=== PATIENT | male | born 1955 | race Caucasian/White ===

== ENCOUNTER → 2018-09-23 17:28 | Outpatient (CLI) | payer MEDICARE, OTHER, SELFPAY ==
--- NOTE | 2018-09-23 17:32 | DI.RAD.S_ITS ---
PROCEDURE: XR FOOT LT MIN 3V INDICATIONS: ball of foot pain TECHNIQUE: 3 views of the foot were acquired. COMPARISON: None. FINDINGS: Bones: No fractures or dislocations. There is moderate to severe degeneration of the 1st interphalangeal joint as well as moderate degeneration of the 2nd and 3rd distal interphalangeal and. There is mild degeneration at the 1st metatarsophalangeal joint and the 4th distal interphalangeal joint. There is fusion of the 5th distal interphalangeal joint. There is a bipartite lateral sesamoid. No suspicious bony lesions. Soft tissues: No suspicious soft tissue calcifications. There is mild soft tissue swelling in the plantar aspect of the forefoot. IMPRESSION: 1. Osteoarthritic changes of the forefoot most prominent at the 1st interphalangeal joint. 2. Bipartite lateral sesamoid. If there is clinical suspicion for sesamoiditis, further evaluation may be obtained with MRI. Dictated by: Stu Camejo M.D. on 09/23/2018 at 18:13 Approved by: Stu Camejo M.D. on 09/23/2018 at 18:16
--- NOTE | 2018-09-23 17:32 | DI.RAD.S_ITS ---
PROCEDURE: XR ANKLE LT MIN 3V INDICATIONS: ball of foot pain TECHNIQUE: 3 views of the ankle were acquired. COMPARISON: None. FINDINGS: Bones: No fractures or dislocations. Ankle mortise is normally aligned. No suspicious bony lesions. Soft tissues: There is a small tibiotalar joint effusion. Achilles tendon appears normal. IMPRESSION: 1. No fracture or dislocation. 2. Nonspecific tibiotalar joint effusion. Dictated by: Stu Camejo M.D. on 09/23/2018 at 18:16 Approved by: Stu Camejo M.D. on 09/23/2018 at 18:19
== END ==
PROVIDERS: PCP Family Medicine; Visit Provider Physician Assistant
DX: M79.672 Pain in left foot (principal); M19.072 Primary osteoarthritis, left ankle and foot; M25.472 Effusion, left ankle
CPT/HCPCS: 73610; 73630

== ENCOUNTER 2024-03-11 09:22 | Day surgery (SDC) | payer MEDICARE, OTHER, SELFPAY ==
--- NOTE | 2024-03-11 | PATH_ITS ---
[facility] Accession Number: [id number] No. of containers..01 Tissue . 01 Material submitted: . colon - TRANSVERSE POLYP . 01 Diagnosis: TRANSVERSE COLON, POLYP: Tubular adenoma. [facility] 03/19/2024 0138 Local . 01 Electronically signed: . Chen Andrews MD, Pathologist NPI- [id number] . 01 Gross description: . TRANSVERSE POLYP: Received in formalin is 1 fragment(s) of berg, soft tissue measuring 0.3 x 0.3 x 0.3 cm submitted entirely in 1 cassette(s) /[facility] 03/13/2024 1924 Local . 01 Pathologist provided ICD-10: D12.3 . 01 CPT . 071256 Specimen Comment: A courtesy copy of this report has been sent to [phone] Performed at: 01 [facility] [address] [place] [address], [place], [place] [id number] MD Stu Springer MD Phone: [phone]
[2024-03-11 10:22] VITALS: BP 162/87; PULSE 63; RESP 17; TEMP 36.2; O2SAT 97
[2024-03-11] MEDS: LACTATED RINGERS 1,000 ML 42 ML IV (10:31)
--- NOTE | 2024-03-11 11:17 | P.HP_ITS ---
History of Present Illness History of Present Illness Date Patient Seen: 03/11/24 Time Patient Seen: 11:17 [place] [facility] [place]: 68-year-old male here for screening colonoscopy. Last colonoscopy 10 years ago normal. No intestinal concerns today. No family history of intestinal malignancy. [facility] Social History Smoking Status: Never smoker alcohol intake: current Meds Home Medications and Allergies Home Medications Medication Instructions Recorded Confirmed Type aspirin 81 mg tablet,delayed 81 mg PO DAILY 09/23/18 03/11/24 History release (Adult Aspirin Regimen) atorvastatin 40 mg tablet 40 mg PO DAILY 09/23/18 03/11/24 History Allergies Allergy/AdvReac Type Severity Reaction Status Date / Time No Known Allergies Allergy Uncoded 03/11/24 10:21 Exam Vital Signs (past 8 hours): - 03/11/24 10:22 Temperature 97.1 F L Pulse Rate 63 Respiratory Rate 17 Blood Pressure 162/87 H Pulse Oximetry 97 Oxygen Delivery Method Room Air Oxygen Delivery Method Room Air Narrative Exam Narrative: General adult man alert oriented no acute distress Chest nonlabored respiration Extremities warm well perfused Assessment & Plan Assessment & Plan narrative: The patient requires colorectal screening and colonoscopy is recommended. Technical details were discussed. Risks, benefits, alternatives explained. Risks including but not limited to myocardial infarction, aspiration, bleeding, pain, missed lesion, incomplete examination, need for further radiographic studies, intestinal injury, and need for major abdominal surgery were discussed. All questions were answered to their satisfaction, and they are in agreement with this plan.
--- NOTE | 2024-03-11 11:20 | P.OP.COLON_ITS ---
Operative Date/Time/Diagnoses Date of procedure: 03/11/24 Time of procedure: 11:20 Pre-op diagnosis: Colorectal screening Procedure & Clinicians Study performed: Screening colonoscopy Same procedure as scheduled: Yes Indications: Colorectal screening Surgeon: Yoel Stewart Procedure Notes Procedure in detail: The history and physical was performed/updated and the patient is ASA class is 2. The procedure was discussed in detail with the patient. Potential risks co mplications including infection, bleeding, missed diagnosis, perforation, need for surgery, and were explained. Their questions were answered and informed consent was obtained. Patient was brought to the procedure room and placed standard monitoring equipment. The patient's vital signs were monitored continuously throughout the entire procedure. Prior to starting time-out was performed. The patient was placed in the left lateral recumbent position. Procedural sedation was administered by anesthesia. Examination began with a thorough inspection of the perianal area there was no evidence of fissures, fistulae, external hemorrhoids or cutaneous malignancy. The colonoscopy scope was then placed into the anal canal and was advanced to the cecum, which was identified by the ileocecal valve, the appendiceal orifice and the confluence of the taenia. The scope was then slowly withdrawn examining colon thoroughly in all directions, irrigating it of any residual stool. The scope was retroflexed within the rectum The patient tolerated the procedure well. They will be discharged once criteria are met. The prep was of good/excellent quality. The withdrawl time was 7 minutes. FINDINGS * Transverse colon-5 mm polyp removed with forceps * Descending colon mild diverticulosis * Internal hemorrhoid Specimen(s): other (Transverse colon polyp) Impression: Colonic polyp x1 Post-procedure Recommendations: Colonoscopy in 10 years and High fiber diet Plan for aftercare: Follow-up is dependent on pathology findings likely 5 years Disposition: same day surgery
[2024-03-11 11:55] VITALS: BP 120/64; PULSE 77; RESP 18; TEMP 36.1; O2SAT 96
[2024-03-11 12:00] VITALS: BP 94/63; PULSE 72; RESP 15; O2SAT 96
[2024-03-11 12:05] VITALS: BP 98/68; PULSE 71; RESP 16; O2SAT 97
[2024-03-11 12:10] VITALS: BP 99/70; PULSE 80; RESP 15; TEMP 36.2; O2SAT 96
[2024-03-11 12:16] VITALS: BP 107/77; PULSE 68; RESP 16; O2SAT 98
== END 2024-03-11 12:36 | disposition home or self-care (01) ==
PROVIDERS: PCP Registered Nurse; Referring Provider Surgery; Visit Provider Surgery
PROC: 0DJD8ZZ Inspection of Lower Intestinal Tract, Via Natural or Artificial Opening Endoscopic (ICD-10-PCS; CPT 45378; principal; 2024-03-11 10:30)
DX: Z12.11 Encounter for screening for malignant neoplasm of colon (principal); K57.30 Diverticulosis of large intestine without perforation or abscess without bleeding; K64.8 Other hemorrhoids; D12.3 Benign neoplasm of transverse colon
CPT/HCPCS: 45380; J2250; J2704

== ENCOUNTER → 2025-02-04 10:31 | Outpatient (CLI) | payer MEDICARE, OTHER, SELFPAY ==
--- NOTE | 2025-02-04 10:32 | DI.RAD.S_ITS ---
PROCEDURE: XR FINGER RT MIN 2V INDICATIONS: distal finger injury TECHNIQUE: AP hand, 3 views of the 3rd finger(s) acquired. COMPARISON: None. FINDINGS: Bones: No fractures or dislocations. No suspicious bony lesions. Soft tissues: No suspicious soft tissue calcifications. IMPRESSION: No acute bony abnormality. Dictated by: Jeremiah Viveros M.D. on 02/04/2025 at 18:27 Approved by: Jeremiah Viveros M.D. on 02/04/2025 at 18:28
== END ==
PROVIDERS: PCP Registered Nurse; Referring Provider Nurse Practitioner Family; Visit Provider Nurse Practitioner Family
DX: S69.90XA Unspecified injury of unspecified wrist, hand and finger(s), initial encounter (principal)
CPT/HCPCS: 73140